=== PATIENT | female | born 2000 | race Two or more races ===

== ENCOUNTER 2019-09-20 16:02 | Emergency (ER) | payer OTHER ==
[~2019-09-20] VITALS: Ht 162.6 cm; Wt 55.3 kg
[2019-09-20 16:05] VITALS: BP 108/73
[2019-09-20] MEDS ORDERED: DEXAMETHASONE 4 MG TABLET ONE (16:22)
[2019-09-20] MEDS ORDERED: DEXAMETHASONE 4 MG TABLET PO ONE (16:30)
== END 2019-09-20 17:29 | disposition home or self-care (01) ==
LOC: ED 16:35
DX: J02.8 Acute pharyngitis due to other specified organisms (principal); J06.9 Acute upper respiratory infection, unspecified
CPT/HCPCS: 71046; 87081; 87880; 99284